=== PATIENT | male | born 1955 | race Caucasian/White ===

== ENCOUNTER 2021-05-04 15:22 | Inpatient (IN) ==
[2021-05-04 16:14] LABS: Basophils % 0.4 %; Eosinophils % 0.8 %; Hematocrit 30.3 % (37.5-50.1); Hemoglobin 10.1 g/dL (12.9-16.9); Immature Granulocytes % 0.8 % (0-4); Lymphocytes # 0.6 K/mcL (0.6-4.6); Lymphocytes % 21.1 %; Mean Corpuscular HGB Conc 33.3 g/dL (31.6-35.5); Mean Corpuscular Hemoglobin 39.8 pg (28.0-33.3); Mean Corpuscular Volume 119.3 fL (83.0-100.0); Mean Platelet Volume 10.2 fL (9.4-12.4); Monocytes # 0.4 K/mcL (0.0-1.3); Monocytes % 16.5 %; Neutrophils # 1.6 K/mcL (1.6-8.9); Platelet Count 266 K/mcL (140-400); Red Blood Count 2.54 M/mcL (4.19-5.50); Red Cell Distribution Width 14.1 % (11.5-14.5); Segmented Neutrophils % 60.4 %; White Blood Count 2.6 K/mcL (4.3-11.1)
[2021-05-04 16:36] LABS: Macrocytosis Present (Not Present); Platelet Estimate Normal (Normal)
[2021-05-04 16:49] LABS: BUN/Creatinine Ratio 19 (6-26); Blood Urea Nitrogen 18 mg/dL (8-23); Carbon Dioxide 23 mEq/L (23-29); Chloride 100 mEq/L (98-107); Glucose 121 mg/dL (70-105); Osmolality,Calculated 281 (280-300); Potassium 3.6 mEq/L (3.5-5.1); Sodium 134 mEq/L (136-145); Troponin I < 0.03 ng/mL (< 0.04); eGFR For African Americans > 60 (> 60); eGFR For Non-African Americans > 60 (> 60)
[2021-05-04] MEDS ORDERED: 0.9 % Sodium Chloride 1,000 ML IVC ONE ×2 (19:13→20:48)
[2021-05-04] MEDS ORDERED: Prochlorperazine 10 MG/2 ML VIAL IVP STA (19:24)
[2021-05-04 19:35] LABS: Amorphous Sediment,Urine Few per hpf (None-Few); Bacteria,Urine Few per hpf (None-Few); Bilirubin,Urine Negative (Negative); Blood,Urine Trace (Negative); Clarity,Urine Clear (Clear); Color,Urine Yellow (Yellow); Glucose,Urine (UA) Normal (Normal); Ketones,Urine Trace mg/dL (Negative); Leukocyte Esterase,Urine Negative (Negative); Mucus,Urine Few per lpf (None-Few); Nitrite,Urine Negative (Negative); Protein,Urine 100 mg/dL (Neg-Trace); Specific Gravity,Urine > 1.030 (1.010-1.025); Squamous Epithelial Cell,Urine Few per hpf (None-Few); Urobilinogen,Urine Normal (Normal); WBC,Urine 0-3 per hpf (0-3)
[2021-05-04 20:11] LABS: Albumin 4.6 g/dL (3.5-5.7); Albumin/Globulin Ratio 1.6 (1.1-2.2); Bilirubin,Direct 0.3 mg/dL (0.0-0.2); Bilirubin,Indirect 1.1 mg/dL (0.0-1.0); Bilirubin,Total 1.4 mg/dL (0.3-1.0); Globulin 2.9 g/dL (2.4-3.5); Total Protein 7.5 g/dL (6.4-8.9)
[2021-05-04 20:23] LABS: Thyroid Stimulating Hormone 1.093 mcIU/mL (0.340-5.600)
[2021-05-04] MEDS ORDERED: Azithromycin 500 MG in 0.9 % Sodium Chloride 250 ML IVPB ONE (20:50)
[2021-05-04] MEDS ORDERED: cefTRIAXone 1,000 MG in Water for inj. (sterile) 10 ML IVP ONE (20:50)
[2021-05-04 22:04] LABS: Adenovirus Not Detected (Not Detect); Bordetella Pertussis Not Detected (Not Detect); Chlamydophila pneumoniae Not Detected (Not Detect); Coronavirus 229E Not Detected (Not Detect); Coronavirus HKU1 Not Detected (Not Detect); Coronavirus NL63 Not Detected (Not Detect); Coronavirus OC43 Not Detected (Not Detect); Human Metapneumovirus Not Detected (Not Detect); Human Rhinovirus/Enterovirus Not Detected (Not Detect); Influenza A Subtype 2009 H1 Not Detected (Not Detect); Influenza B Not Detected (Not Detect); Mycoplasma pneumoniae Not Detected (Not Detect); Parainfluenza Virus 1 Not Detected (Not Detect); Parainfluenza Virus 2 Not Detected (Not Detect); Parainfluenza Virus 3 Not Detected (Not Detect); Parainfluenza Virus 4 Not Detected (Not Detect); Respiratory Syncytial Virus Not Detected (Not Detect); SARS-CoV-2 Not Detected (Not Detect)
[2021-05-04] MEDS ORDERED: Ondansetron 4 MG/2 ML VIAL IVP PRN (22:20)
[2021-05-04] MEDS ORDERED: Naloxone 0.4 MG/ML INJ IVP PRN (22:20)
[2021-05-04] MEDS ORDERED: 0.9 % Sodium Chloride 1,000 ML IVC SCH (22:30)
[2021-05-05 03:49] LABS: Hematocrit 23.6 % (37.5-50.1); Mean Corpuscular HGB Conc 35.2 g/dL (31.6-35.5); Mean Corpuscular Hemoglobin 41.1 pg (28.0-33.3); Mean Corpuscular Volume 116.8 fL (83.0-100.0); Mean Platelet Volume 9.9 fL (9.4-12.4); Platelet Count 215 K/mcL (140-400); Red Blood Count 2.02 M/mcL (4.19-5.50); Red Cell Distribution Width 13.8 % (11.5-14.5); White Blood Count 2.2 K/mcL (4.3-11.1)
[2021-05-05 03:53] LABS: Hemoglobin 8.3 g/dL (12.9-16.9)
[2021-05-05 04:00] LABS: BUN/Creatinine Ratio 20 (6-26); Blood Urea Nitrogen 16 mg/dL (8-23); Calcium 8.6 mg/dL (8.6-10.3); Carbon Dioxide 23 mEq/L (23-29); Chloride 102 mEq/L (98-107); Glucose 131 mg/dL (70-105); Osmolality,Calculated 277 (280-300); Potassium 3.6 mEq/L (3.5-5.1); Sodium 132 mEq/L (136-145); eGFR For African Americans > 60 (> 60); eGFR For Non-African Americans > 60 (> 60)
[2021-05-05 04:02] LABS: % Iron Saturation 9 % (20-55); Iron 24 mcg/dL (65-175); Transferrin 187 mg/dL (203-362)
[2021-05-05 04:19] LABS: Ferritin 948 ng/mL (20-250)
[2021-05-05 04:25] LABS: Folate 9.8 ng/mL (3.0-16.0)
[2021-05-05] MEDS: Acetaminophen 325 MG TABLET PO PRN ×2 (05:10→17:14)
[2021-05-05 05:38] LABS: Basophils % 0.4 %; Hematocrit 23.5 % (37.5-50.1); Hemoglobin 8.1 g/dL (12.9-16.9); Immature Granulocytes % 0.4 % (0-4); Lymphocytes # 0.5 K/mcL (0.6-4.6); Lymphocytes % 20.1 %; Mean Corpuscular HGB Conc 34.5 g/dL (31.6-35.5); Mean Corpuscular Hemoglobin 40.5 pg (28.0-33.3); Mean Corpuscular Volume 117.5 fL (83.0-100.0); Mean Platelet Volume 10.4 fL (9.4-12.4); Monocytes # 0.4 K/mcL (0.0-1.3); Monocytes % 18.4 %; Neutrophils # 1.4 K/mcL (1.6-8.9); Platelet Count 208 K/mcL (140-400); Segmented Neutrophils % 60.7 %; White Blood Count 2.3 K/mcL (4.3-11.1)
[2021-05-05 06:11] LABS: Macrocytosis Present (Not Present); Platelet Estimate Normal (Normal)
[2021-05-05] MEDS ORDERED: Isovue-370 500 ML BOTTLE IVP ONE (08:20)
[2021-05-05] MEDS ORDERED: Cyanocobalamin (B-12) 1,000 MCG/ML VIAL SQ ONE (11:12)
[2021-05-05] MEDS: *HR* Enoxaparin 40 MG/0.4 ML SYRINGE SQ SCH (11:42)
[2021-05-05] MEDS: cefTRIAXone 1,000 MG in Water for inj. (sterile) 10 ML IVP SCH (20:23)
[2021-05-05] MEDS: Azithromycin 500 MG in 0.9 % Sodium Chloride 250 ML IVPB SCH (20:24)
[2021-05-06 01:46] LABS: Basophils % 1.1 %; Immature Granulocytes % 0.6 % (0-4); Red Blood Count 1.94 M/mcL (4.19-5.50)
[2021-05-06 01:47] LABS: Eosinophils # 0.1 K/mcL (0.0-0.6); Eosinophils % 2.9 %; Hematocrit 22.9 % (37.5-50.1); Hemoglobin 7.9 g/dL (12.9-16.9); Lymphocytes # 0.6 K/mcL (0.6-4.6); Lymphocytes % 36.8 %; Mean Corpuscular HGB Conc 34.5 g/dL (31.6-35.5); Mean Corpuscular Hemoglobin 40.7 pg (28.0-33.3); Mean Platelet Volume 9.9 fL (9.4-12.4); Monocytes # 0.3 K/mcL (0.0-1.3); Monocytes % 15.5 %; Platelet Count 195 K/mcL (140-400); Red Cell Distribution Width 13.9 % (11.5-14.5); Segmented Neutrophils % 43.1 %; White Blood Count 1.7 K/mcL (4.3-11.1)
[2021-05-06 01:48] LABS: Neutrophils # 0.7 K/mcL (1.6-8.9)
[2021-05-06 02:08] LABS: Anisocytosis 1+ (Not Present); BUN/Creatinine Ratio 17 (6-26); Blood Urea Nitrogen 13 mg/dL (8-23); Calcium 8.7 mg/dL (8.6-10.3); Carbon Dioxide 22 mEq/L (23-29); Chloride 108 mEq/L (98-107); Glucose 113 mg/dL (70-105); Osmolality,Calculated 287 (280-300); Platelet Estimate Normal (Normal); Polychromasia 1+ (Not Present); Potassium 3.5 mEq/L (3.5-5.1); Sodium 138 mEq/L (136-145); eGFR For African Americans > 60 (> 60); eGFR For Non-African Americans > 60 (> 60)
[2021-05-06] MEDS: *HR* Enoxaparin 40 MG/0.4 ML SYRINGE SQ SCH (05:24)
[2021-05-06] MEDS: cefTRIAXone 1,000 MG in Water for inj. (sterile) 10 ML IVP SCH (09:27)
[2021-05-06 09:34] LABS: Hematocrit 23.1 % (37.5-50.1); Hemoglobin 8.2 g/dL (12.9-16.9)
[2021-05-06] MEDS: Acetaminophen 325 MG TABLET PO PRN (19:59)
[2021-05-06] MEDS: Azithromycin 500 MG in 0.9 % Sodium Chloride 250 ML IVPB SCH (20:01)
[2021-05-07 01:29] LABS: Hematocrit 22.7 % (37.5-50.1); Hemoglobin 7.8 g/dL (12.9-16.9); Mean Corpuscular HGB Conc 34.4 g/dL (31.6-35.5); Mean Corpuscular Hemoglobin 40.2 pg (28.0-33.3); Mean Platelet Volume 10.3 fL (9.4-12.4); Platelet Count 206 K/mcL (140-400); Red Blood Count 1.94 M/mcL (4.19-5.50); Red Cell Distribution Width 13.9 % (11.5-14.5); White Blood Count 2.5 K/mcL (4.3-11.1)
[2021-05-07 01:50] LABS: BUN/Creatinine Ratio 19 (6-26); Blood Urea Nitrogen 15 mg/dL (8-23); Calcium 8.8 mg/dL (8.6-10.3); Carbon Dioxide 24 mEq/L (23-29); Chloride 105 mEq/L (98-107); Glucose 98 mg/dL (70-105); Osmolality,Calculated 283 (280-300); Potassium 3.5 mEq/L (3.5-5.1); Sodium 136 mEq/L (136-145); eGFR For African Americans > 60 (> 60); eGFR For Non-African Americans > 60 (> 60)
[2021-05-07] MEDS: *HR* Enoxaparin 40 MG/0.4 ML SYRINGE SQ SCH (06:20)
[2021-05-07] MEDS: cefTRIAXone 1,000 MG in Water for inj. (sterile) 10 ML IVP SCH (08:47)
[2021-05-07] MEDS ORDERED: Folic Acid 1 MG TABLET PO SCH (09:00)
[2021-05-07] MEDS: Acetaminophen 325 MG TABLET PO PRN (10:40)
[2021-05-07 11:29] VITALS: BP 109/68
== END 2021-05-07 12:45 | disposition home or self-care (01) | DRG 871 ==
LOC: EMEROOARM 15:22 → 2ANU 15:22 → SUATTDRO 21:44 → 2ANU 22:54
PROVIDERS: ADMIT Internal Medicine; ATTEND Family Medicine